=== PATIENT | male | born 1955 | race Caucasian/White ===

== ENCOUNTER 2019-02-07 21:07 | Emergency (ER) | payer OTHER, SELFPAY ==
[2019-02-07 21:15] VITALS: BP 154/94; PULSE 69; RESP 16; TEMP 36.5; O2SAT 96
--- NOTE | 2019-02-08 00:03 | ED.BACK ---
HPI - Back Pain/Injury General Chief Complaint: Back Pain/Injury Stated Complaint: thinks he has a kidney stone Time Seen by Provider: 02/08/19 00:02 Source: patient Mode of arrival: Ambulatory Limitations: no limitations History of Present Illness HPI Narrative: [age] year old male comes emergency department with right flank pain radiating to the right groin. Patient states that it started sort of gradually with increasing intensity he feels like it is very intense but dull pain. States it feels like somebody just rectum in the side with a baseball bat. He states that he has any fevers, no nausea or vomiting. He had a normal large bowel movement earlier today he does not have the sensation he needs to have more bowel movements. He has not had any dysuria urgency frequency or hematuria. No penile discharge. Denies pain into the testicles themselves. Patient has not had similar symptoms in the past. He states that some has some mild hypertension that is untreated, no other medical issues. No prior surgeries. Denies allergies. He smokes tobacco in a hookah form, denies alcohol or illicit. He lives on [facility]. He did receive a dose of Toradol around 730 this evening and states that was significantly helpful. Related Data Previous Rx's Medication Instructions Recorded hydrocodone-acetaminophen [[place]] 1 tab PO Q6H PRN #10 tab 02/08/19 tamsulosin [Flomax] 0.4 mg PO DAILY #7 cap 02/08/19 Allergies Allergy/AdvReac Type Severity Reaction Status Date / Time No Known Allergies Allergy Uncoded 06/12/17 12:29 Review of Systems Review of Systems ROS Unobtainable: All systems reviewed & are unremarkable except as noted in HPI and below Patient History Social History (Updated 02/08/19 @ 00:16 by Sangeeta Cabrera DO) Smoking Status: Current every day smoker Smokeless tobacco user: other substance use type: does not use Smoking Status: Former smoker Substance Use Type: marijuana Exam Narrative Exam Narrative: GENERAL: Alert and oriented x three, obese, well-appearing male in mild distress. HEENT: Head normocephalic, atraumatic, EOMI, pupils reactive, face symmetric, moist mucous membranes NECK: Supple, full range of motion CARDIOVASCULAR: Regular rate and rhythm without murmurs, rubs or gallops. RESPIRATORY: Breath sounds equal bilaterally, no wheezes rales or rhonchi. ABDOMEN: Soft, nontender. Normoactive bowel sounds all 4 quadrants. No guarding or rebound, rigidity, no mass : No CVA tenderness, no inguinal hernias. EXTREMITIES: Normal range of motion, no clubbing or edema. Neurovascularly intact NEUROLOGICAL: Cranial nerves II through XII grossly intact. Moving all extremities SKIN: Warm, dry, no petechiae, no rashes or lesions. Initial Vital Signs Initial Vital Signs: Vital Signs Temperature 97.7 F 02/07/19 21:15 Pulse Rate 69 02/07/19 21:15 Respiratory Rate 16 02/07/19 21:15 Blood Pressure 154/94 H 02/07/19 21:15 Pulse Oximetry 96 02/07/19 21:15 Course Orders Ordered: ED Orders 02/08/19 00:12 CT kidney ureter bladder (KUB) Stat 02/08/19 00:25 Complete Blood Count AUTO DIFF Stat Comprehensive Metabolic Panel Stat Lipase Stat Discontinued Medications Hydrocodone Bitart/Acetaminophen (Vicodin 5/325 Prepack) 1 bottle MISC SEEINSTR ONE Stop: 02/08/19 01:25 Last Admin: 02/08/19 01:31 Dose: 1 bottle Documented by: MARIA TERESA Ketorolac Tromethamine (Toradol) 30 mg IM NOW ONE Stop: 02/08/19 01:24 Last Admin: 02/08/19 01:36 Dose: Not Given Documented by: MARIA TERESA Ketorolac Tromethamine (Toradol) 30 mg IV NOW ONE Stop: 02/08/19 01:24 Last Admin: 02/08/19 01:31 Dose: 30 mg Documented by: MARIA TERESA Tamsulosin HCl (Flomax) 0.4 mg PO NOW ONE Stop: 02/08/19 01:16 Last Admin: 02/08/19 01:31 Dose: 0.4 mg Documented by: MARIA TERESA Vital Signs Vital signs: Vital Signs - 8 hr 02/08/19 02:10 Temperature 99.3 F Pulse Rate 51 L Respiratory Rate 16 Blood Pressure 159/84 H Pulse Oximetry 97 MDM - Back Pain/Injury Lab Data Attestation: I reviewed the patient's lab results. Result diagrams: 02/08/19 00:25 02/08/19 00:25 Labs: Lab Results 02/08/19 02/08/19 Range/Units 00:25 00:25 WBC 11.1 H (4.5-11.0) X10^3/uL RBC 4.43 L (4.5-5.9) X10^6/uL Hgb 13.6 (13.5-17.5) g/dL Hct 39.6 L (41-53) % MCV 89.6 (80-100) fL MCH 30.7 (26-34) PG MCHC 34.3 (30-36) % RDW 12.9 (11.6-14.8) % Plt Count 260 (150-400) X10^3/uL Neut % (Auto) 76.1 H (50-75) % Lymph % (Auto) 15.4 L (25-40) % [place] % (Auto) 7.5 (3-14) % Eos % (Auto) 0.4 L (2-4) % Baso % (Auto) 0.6 (0-2) % Neut # (Auto) 8400 H (2755-3030) /uL Lymph # (Auto) 1700 (1524-4110) /uL [place] # (Auto) 800 (0-900) /uL Eos # (Auto) 0 (0-450) /uL Baso # (Auto) 100 (0-100) /uL Sodium 138 (137-145) mmol/L Potassium 3.8 (3.4-5.1) mmol/L Chloride 102 (98-107) mmol/L Carbon Dioxide 23 (22-32) mmol/L BUN 22 H (9-20) mg/dL Creatinine 1.00 (0.66-1.25) mg/dL Estimated GFR > 60.0 (>60) mL/min BUN/Creatinine Ratio 22.0 (6-22) Glucose 109 (80-110) mg/dL Calcium 8.4 (8.4-10.2) mg/dL Total Bilirubin 0.4 (0.2-1.3) mg/dL AST 25 (17-59) IU/L ALT 14 (<50) IU/L Alkaline Phosphatase 73 (38-126) U/L Total Protein 7.4 (6.3-8.2) g/dL Albumin 4.5 (3.5-5.0) g/dL Globulin 2.9 (1.7-4.1) g/dL Albumin/Globulin Ratio 1.6 (1.0-2.8) Lipase 37 (23-300) U/L Urine Dip Bedside Urine Glucose Negative Bedside Urine Bilirubin - Negative Bedside Urine Ketone - Negative Urine Specific [place] 1.015 Bedside Urine Occult Blood - Negative Bedside Urine pH 6.0 Bedside Urine Protein +/- 15 Bedside Urine Urobilinogen +/- 1mg Bedside Urine Nitrite - Negative Bedside Urine Leukocytes - Negative Esterase Imaging Data CT scan - abdomen: Radiologist's impression: Right hydroureteronephrosis arising from 2.5 mm ureterovesical junction stone. Nonobstructing renal pelvic nephrolithiasis on the left. Marked colonic stool loading which may clinically manifest as constipation. Dependent sudden had mental atelectasis MDM Narrative Medical decision making narrative: Spoke with patient, he is was initially feeling much better his right at the 6 hour jossue and likely his Toradol is wearing off any began have quite a bit discomfort. He is due in terms of timing for another dose of Toradol and was given in the ED. Was also given a prepack of [place] and a dose of Flomax. Discussed with patient he has a small kidney stone will likely pass but potentially cannot and may need urology follow-up. Was given [address] Nieto as well as the [facility] group as patient lives on [facility] so these are the easiest for him to contact. Patient's renal function appears stable no signs of infection. Patient was much more comfortable after pain medication and comfortable with the plan. Was given a short course of Flomax as well as narcotic pain medication for as needed pain. Discharge Plan Departure Patient Disposition: Home Clinical Impression: Kidney stone on right side Discharge Date/Time: 02/08/19 02:10 Instructions: DI for Kidney Stones Activity Restrictions/Additional Instructions: Follow-up with Urology if your symptoms have not completely resolved call Saturday morning for an appointment. If your symptoms have totally resolved you can follow up with primary care instead. Take Flomax once daily until gone Take pain medication as prescribed, this medication can make you sleepy do not drive, perform hazardous activities or make any major decisions while taking it. I would recommend ibuprofen 800 mg every 8 hours as needed for pain and then taking narcotic pain medication for breakthrough pain. Return to the ER for fevers greater than 100.4 F, rapidly worsening pain, persistent vomiting, lightheadedness, passing out, inability urinate, black or bloody stools or other new or concerning symptoms. Prescriptions: New tamsulosin [Flomax] 0.4 mg capsule 0.4 mg PO DAILY Qty: 7 RF: 0 hydrocodone-acetaminophen [[place]] 5-325 mg tablet 1 tab PO Q6H PRN (Reason: pain) Qty: 10 RF: 0 Referrals: Jimenez Rosales DO [Non-Staff] - Sri Nieto MD [Physician] - Roger Ríos MD [Primary Care Provider] -
--- NOTE | 2019-02-08 00:12 | DI.CT.S_ITS ---
PROCEDURE: CT KIDNEY URETER BLADDER (KUB) INDICATIONS: right flank pain radiates to groin, likely stone TECHNIQUE: Noncontrast 5 mm thick sections acquired from the diaphragms to the symphysis. 5 mm thick coronal and sagittal reformats were then performed. For radiation dose reduction, the following was used: automated exposure control, adjustment of mA and/or kV according to patient size. COMPARISON: None. FINDINGS: Image quality: Excellent. Lung bases: Lung bases are clear. Heart size is normal. Urinary system: Both kidneys are normal in size. 3 mm stone is noted in the right UVJ causing mild right-sided hydronephrosis. There is mild right perinephric stranding. 3 mm stone noted in the lower pole the left kidney which does not cause obstruction. Bladder wall thickness is normal; no calcified bladder stones. Other solid organs: Liver is normal in size. Gallbladder is within normal limits. Pancreas is normal in contours. Spleen is normal in size. No adrenal nodules. Peritoneum and bowel: Unenhanced bowel loops demonstrate normal wall thickness and caliber. No free fluid or air. The appendix is not definitely visualized. No free fluid or inflammatory changes noted adjacent to the cecum. Nodes and vessels: No retroperitoneal or mesenteric adenopathy by size criteria. Aorta and inferior vena cava are normal in caliber. Abdominal wall: No ventral hernias. Pelvis: No free pelvic fluid. No inguinal adenopathy. Small bilateral fat containing inguinal hernias. Bones: No suspicious bony lesions. No vertebral body compression fractures. Spine degenerative disc disease and facet arthropathy. IMPRESSION: 1. 3 mm right UVJ stone causing mild right-sided hydronephrosis. 2. Mild right perinephric stranding which could be related to hydronephrosis, however superimposed infection cannot be excluded by imaging alone. Recommend correlation with urinalysis. 3. 3 mm nonobstructing left renal stone. Dictated by: Amy Javier MD, PhD on 02/08/2019 at 7:44 Approved by: Amy Javier MD, PhD on 02/08/2019 at 7:48
[2019-02-08 00:48] LABS: Add Manual Diff / Slide Review NO; Basophils Absolute Auto 100 /uL (0-100); Basophils Percent Auto 0.6 % (0-2); Eosinophils Absolute Auto 0 /uL (0-450); Eosinophils Percent Auto 0.4 % (2-4); Hematocrit 39.6 % (41-53); Hemoglobin 13.6 g/dL (13.5-17.5); Lymphocytes Absolute Auto 1700 /uL (1100-4500); Lymphocytes Percent Auto 15.4 % (25-40); Mean Corpuscular HGB Conc 34.3 % (30-36); Mean Corpuscular Hemoglobin 30.7 PG (26-34); Mean Corpuscular Volume 89.6 fL (80-100); Monocytes Absolute Auto 800 /uL (0-900); Monocytes Percent Auto 7.5 % (3-14); Neutrophils Absolute Auto 8400 /uL (1500-7000); Neutrophils Percent Auto 76.1 % (50-75); Platelet Count 260 X10^3/uL (150-400); Red Blood Cell Count 4.43 X10^6/uL (4.5-5.9); Red Cell Distribution Width 12.9 % (11.6-14.8); White Blood Cell Count 11.1 X10^3/uL (4.5-11.0)
[2019-02-08 01:02] LABS: Alanine Aminotransferase 14 IU/L (<50); Albumin 4.5 g/dL (3.5-5.0); Albumin Globulin Ratio 1.6 (1.0-2.8); Alkaline Phosphatase 73 U/L (38-126); Aspartate Aminotransferase 25 IU/L (17-59); Bilirubin Total 0.4 mg/dL (0.2-1.3); Blood Urea Nitrogen 22 mg/dL (9-20); Calcium 8.4 mg/dL (8.4-10.2); Carbon Dioxide 23 mmol/L (22-32); Chloride 102 mmol/L (98-107); Estimated Glomerular Filt Rate > 60.0 mL/min (>60); Globulin 2.9 g/dL (1.7-4.1); Glucose 109 mg/dL (80-110); HEMOLYSIS 20 (0-50); Lipase 37 U/L (23-300); Potassium 3.8 mmol/L (3.4-5.1); Sodium 138 mmol/L (137-145); Total Protein 7.4 g/dL (6.3-8.2)
[2019-02-08] MEDS: KETOROLAC 60 MG/2 ML VIAL 30 MG IV (01:31)
[2019-02-08] MEDS: TAMSULOSIN 0.4 MG CAPSULE PO (01:31)
[2019-02-08] MEDS: HYDROCODONE/ACET 5/325 PREPACK 1 BOTTLE MISC (01:31)
[2019-02-08 02:10] VITALS: BP 159/84; PULSE 51; RESP 16; TEMP 37.4; O2SAT 97
== END 2019-02-08 02:10 | disposition home or self-care (01) ==
PROVIDERS: Emergency Provider Emergency Medicine; PCP Family Medicine
DX: N20.0 Calculus of kidney (principal); I10 Essential (primary) hypertension
CPT/HCPCS: 36415; 74176; 80053; 81003; 83690; 85025; 96374; 99282; 99284; J1885

== ENCOUNTER 2019-10-19 15:01 | Observation (INO) | payer BC, SELFPAY ==
[2019-10-19] VITALS (22 sets, daily range): BP systolic 114–175; BP diastolic 71–97; PULSE 54–91; RESP 14–34; TEMP 36.7–37.3; O2SAT 95–100; BMI 34.4; BMI 35.4
--- NOTE | 2019-10-19 15:39 | DI.CT.S_ITS ---
PROCEDURE: CT HEAD/BRAIN WO CON INDICATIONS: Dizzy, nausea TECHNIQUE: Noncontrast 4.5 mm thick angled axial sections acquired from the foramen magnum to the vertex, with coronal and sagittal reformats. For radiation dose reduction, the following was used: automated exposure control, adjustment of mA and/or kV according to patient size. COMPARISON: None. FINDINGS: Image quality: Excellent. CSF spaces: Basal cisterns are patent. No extra-axial fluid collections. Ventricles are normal in size and shape. Brain: No midline shift. No intracranial masses or hemorrhage. Nelson-white matter interface is normal. Skull and face: Calvarium and visualized facial bones are intact, without suspicious lesions. Right parotid gland partially visualized. Sinuses: Visualized sinuses and mastoids are clear. IMPRESSION: No acute intracranial abnormality. Dictated by: Venu Mckeon M.D. on 10/19/2019 at 15:58 Approved by: Venu Mckeon M.D. on 10/19/2019 at 16:00
[2019-10-19] MEDS: SODIUM CHLORIDE 0.9% 1,000 ML 1000 ML IV ×2 (15:41→17:24)
[2019-10-19 15:44] LABS: Add Manual Diff / Slide Review NO; Basophils Absolute Auto 0 /uL (0-100); Basophils Percent Auto 0.5 % (0-2); Eosinophils Absolute Auto 100 /uL (0-450); Eosinophils Percent Auto 1.2 % (2-4); Hematocrit 44.4 % (41-53); Hemoglobin 15.5 g/dL (13.5-17.5); Lymphocytes Absolute Auto 2400 /uL (1100-4500); Lymphocytes Percent Auto 25.6 % (25-40); Mean Corpuscular Hemoglobin 31.6 PG (26-34); Mean Corpuscular Volume 90.3 fL (80-100); Monocytes Absolute Auto 1000 /uL (0-900); Monocytes Percent Auto 11.2 % (3-14); Neutrophils Absolute Auto 5700 /uL (1500-7000); Neutrophils Percent Auto 61.5 % (50-75); Platelet Count 328 X10^3/uL (150-400); Red Blood Cell Count 4.91 X10^6/uL (4.5-5.9); Red Cell Distribution Width 12.9 % (11.6-14.8); White Blood Cell Count 9.3 X10^3/uL (4.5-11.0)
[2019-10-19 15:51] LABS: Alanine Aminotransferase 17 IU/L (<50); Albumin 4.6 g/dL (3.5-5.0); Albumin Globulin Ratio 1.3 (1.0-2.8); Alkaline Phosphatase 58 U/L (38-126); Aspartate Aminotransferase 26 IU/L (17-59); BUN Creatinine Ratio 28.2 (6-22); Bilirubin Total 0.5 mg/dL (0.2-1.3); Blood Urea Nitrogen 24 mg/dL (9-20); Calcium 9.5 mg/dL (8.4-10.2); Carbon Dioxide 25 mmol/L (22-32); Chloride 104 mmol/L (98-107); Creatine Kinase 61 U/L (55-170); Estimated Glomerular Filt Rate > 60.0 mL/min (>60); Globulin 3.5 g/dL (1.7-4.1); Glucose 107 mg/dL (80-110); HEMOLYSIS 25 (0-50); Potassium 3.3 mmol/L (3.4-5.1); Sodium 138 mmol/L (137-145); Total Protein 8.1 g/dL (6.3-8.2)
[2019-10-19] MEDS: MECLIZINE HCL 12.5 MG TABLET 25 MG PO (16:00)
[2019-10-19] MEDS: ONDANSETRON 4 MG/2 ML INJ IV (16:00)
[2019-10-19 16:02] LABS: Troponin I < 0.012 ng/mL (0.01-0.034)
--- NOTE | 2019-10-19 16:22 | ED.NEUROSD ---
HPI - Neuro Symptoms/Deficit General Chief Complaint: Neuro Symptoms/Deficit Stated Complaint: possible stroke Time Seen by Provider: 10/19/19 15:08 Source: patient Mode of arrival: Wheelchair Limitations: other History of Present Illness HPI Narrative: Patient is a 64-year-old male who presents with dizziness double vision ongoing for the last 3 days. He says it started 3 days ago every time he sat up removed he got extremely dizzy and nauseous and had double vision. He needed to lay flat he was vomiting a lot as well at that time. He had no weakness numbness or tingling. He denies any chest pain or heart palpitations. He says he has some improvement however lying flat is the best position for him. On Anticoagulants: No Related Data Previous Rx's Medication Instructions Recorded hydrocodone-acetaminophen [[place]] 1 tab PO Q6H PRN #10 tab 02/08/19 tamsulosin [Flomax] 0.4 mg PO DAILY #7 cap 02/08/19 Allergies Allergy/AdvReac Type Severity Reaction Status Date / Time No Known Drug Allergies Allergy Verified 10/19/19 19:30 Review of Systems Review of Systems Narrative: GENERAL: Denies chills, fatigue, malaise, fever, sweats, travel HEENT: Denies sinus pain, ear pain, sore throat, difficulty swallowing, neck pain RESPIRATORY: Denies dyspnea, cough, wheezing, hemoptysis, sputum. CARDIOVASCULAR: Denies chest pain, palpitations, orthopnea, edema GASTROINTESTINAL: Denies nausea, vomiting, abdominal pain, diarrhea, constipation, melena. : Denies dysuria, frequency, incontinence, hematuria, urinary retention, flank pain. MUSCULOSKELETAL: Denies weakness, joint pain, or bony pain SKIN: No rash, no erythema, no pruritus NEUROLOGIC: See HPI PSYCHIATRIC: No concerning psychosocial issues. 12 point review of systems is negative except for those stated above and HPI Patient History Medical History Hypertension (Acute) Social History Smoking Status: Current every day smoker Smokeless tobacco user: other substance use type: does not use Smoking Status: Current every day smoker Substance Use Type: marijuana Exam Initial Vital Signs Initial Vital Signs: Vital Signs Temperature 98.3 F 10/19/19 15:09 Pulse Rate 61 10/19/19 15:09 Respiratory Rate 18 10/19/19 15:09 Blood Pressure 157/87 H 10/19/19 15:09 Pulse Oximetry 100 10/19/19 15:09 GENERAL: Alert well-appearing male slightly overweight and in no acute distress. HEENT: Head atraumatic,EOMI, pupils reactive, face symmetric, moist mucous membranes CARDIOVASCULAR: Regular rate and rhythm without murmurs, rubs or gallops. RESPIRATORY: Breath sounds equal bilaterally, no wheezes rales or rhonchi. ABDOMEN: Soft, nontender. Normoactive bowel sounds all 4 quadrants. No guarding or rebound. EXTREMITIES: Normal range of motion, no clubbing or edema. Neurovascularly intact NEUROLOGICAL: Alert and oriented x4.Normal gait and speech. Cranial nerves II through XII grossly intact. Good rmrfna-[id number], good [id number], strength equal bilaterally, no dysarthria or aphasia, sensation in tact to soft touch bilaterally, no visual changes, no facial droop SKIN: Warm, dry, no laceration, no petechiae, no rashes or lesions. Scores NIH Stroke Scale Level of Conciousness: Alert, keenly responsive Ask month/age: Answers both questions correctly. Open/close eyes, close hand: Performs both tasks correctly Best gaze horizontal: Normal Visual hubbard: No visual loss Facial palsy: Normal symetrical movement Left arm drift: No drift for full 10 sec Right arm drift: No drift for full 10 sec Left leg drift: No drift for full 10 sec Right leg drift: No drift for full 10 sec Limb ataxia: Absent Sensory on face/arms/legs: Normal, no sensory loss Best language: No aphasia, normal Dysarthria: Normal Extinction or inattention: No abnormality Total NIH Stroke scale score: 0 Course Orders Ordered: ED Orders 10/19/19 15:13 Complete Blood Count AUTO DIFF Stat Comprehensive Metabolic Panel Stat Troponin & CK Cardiac Panel Stat 10/19/19 15:39 CT head/brain wo con Stat Sodium Chloride (Normal Saline 0.9%) 1,000 mls @ 1,000 mls/hr IV CONT NIXON Last Infusion: 10/19/19 17:24 Dose: 0 mls/hr Documented by: Admin: 10/19/19 15:41 Dose: 1,000 mls/hr Documented by: LEYLA Discontinued Medications Diazepam (Valium) 2 mg IV NOW ONE Stop: 10/19/19 17:22 Last Admin: 10/19/19 17:33 Dose: 2 mg Documented by: LEYLA Sodium Chloride (Normal Saline 0.9%) 1,000 mls @ 1,000 mls/hr IV BOLUS ONE Stop: 10/19/19 18:20 Last Infusion: 10/19/19 19:01 Dose: 0 mls/hr Documented by: Admin: 10/19/19 17:24 Dose: 1,000 mls/hr Documented by: LEYLA Meclizine HCl (Antivert) 25 mg PO NOW ONE Stop: 10/19/19 15:40 Last Admin: 10/19/19 16:00 Dose: 25 mg Documented by: LEYLA Ondansetron HCl (Zofran) 4 mg IV NOW ONE Stop: 10/19/19 15:40 Last Admin: 10/19/19 16:00 Dose: 4 mg Documented by: LEYLA Vital Signs Vital signs: Vital Signs - 8 hr 10/19/19 15:09 10/19/19 15:26 10/19/19 15:30 Temperature 98.3 F Pulse Rate 61 64 65 Respiratory Rate 18 17 22 Blood Pressure 157/87 H Pulse Oximetry 100 98 97 10/19/19 15:31 10/19/19 15:58 10/19/19 16:00 Temperature Pulse Rate 65 60 57 L Respiratory Rate 24 14 19 Blood Pressure 166/97 H 156/80 H Pulse Oximetry 97 97 99 10/19/19 16:01 10/19/19 16:30 10/19/19 16:31 Temperature Pulse Rate 58 L 59 L 61 Respiratory Rate 22 16 15 Blood Pressure 144/84 H 114/72 Pulse Oximetry 99 95 97 10/19/19 17:00 10/19/19 17:17 10/19/19 17:18 Temperature Pulse Rate 60 69 81 Respiratory Rate 18 Blood Pressure 127/75 156/87 H 159/92 H Pulse Oximetry 96 99 99 10/19/19 17:30 10/19/19 17:31 10/19/19 18:00 Temperature Pulse Rate 56 L 54 L 64 Respiratory Rate 16 17 15 Blood Pressure 136/71 129/76 Pulse Oximetry 99 99 97 10/19/19 18:30 10/19/19 19:00 10/19/19 19:01 Temperature Pulse Rate 91 H 70 72 Respiratory Rate 27 H 20 20 Blood Pressure 122/84 175/90 H Pulse Oximetry 97 96 MDM - Neuro Symptoms/Deficit Lab Data Attestation: I reviewed the patient's lab results. Result diagrams: 10/19/19 15:13 10/19/19 15:13 Labs: Lab Results 10/19/19 10/19/19 Range/Units 15:13 15:13 WBC 9.3 (4.5-11.0) X10^3/uL RBC 4.91 (4.5-5.9) X10^6/uL Hgb 15.5 (13.5-17.5) g/dL Hct 44.4 (41-53) % MCV 90.3 (80-100) fL MCH 31.6 (26-34) PG MCHC 35.0 (30-36) % RDW 12.9 (11.6-14.8) % Plt Count 328 (150-400) X10^3/uL Neut % (Auto) 61.5 (50-75) % Lymph % (Auto) 25.6 (25-40) % [place] % (Auto) 11.2 (3-14) % Eos % (Auto) 1.2 L (2-4) % Baso % (Auto) 0.5 (0-2) % Neut # (Auto) 5700 (2597-8391) /uL Lymph # (Auto) 2400 (7622-9550) /uL [place] # (Auto) 1000 H (0-900) /uL Eos # (Auto) 100 (0-450) /uL Baso # (Auto) 0 (0-100) /uL Sodium 138 (137-145) mmol/L Potassium 3.3 L (3.4-5.1) mmol/L Chloride 104 (98-107) mmol/L Carbon Dioxide 25 (22-32) mmol/L BUN 24 H (9-20) mg/dL Creatinine 0.85 (0.66-1.25) mg/dL Estimated GFR > 60.0 (>60) mL/min BUN/Creatinine Ratio 28.2 H (6-22) Glucose 107 (80-110) mg/dL Calcium 9.5 (8.4-10.2) mg/dL Total Bilirubin 0.5 (0.2-1.3) mg/dL AST 26 (17-59) IU/L ALT 17 (<50) IU/L Alkaline Phosphatase 58 (38-126) U/L Total Creatine Kinase 61 (55-170) U/L CK-MB (CK-2) TNP CK-MB (CK-2) Rel Index TNP Troponin I < 0.012 (0.01-0.034) ng/mL Total Protein 8.1 (6.3-8.2) g/dL Albumin 4.6 (3.5-5.0) g/dL Globulin 3.5 (1.7-4.1) g/dL Albumin/Globulin Ratio 1.3 (1.0-2.8) Point of Care Testing Glucose POC 96 Urine Dip Bedside Urine Glucose Negative Bedside Urine Bilirubin - Negative Bedside Urine Ketone - Negative Urine Specific [place] 1.010 Bedside Urine Occult Blood - Negative Bedside Urine pH 7.5 Bedside Urine Protein - Negative Bedside Urine Urobilinogen - Negative Bedside Urine Nitrite - Negative Bedside Urine Leukocytes - Negative Esterase Imaging Data CT scan - head: Radiologist's Impression: PROCEDURE: CT HEAD/BRAIN WO CON INDICATIONS: Dizzy, nausea TECHNIQUE: Noncontrast 4.5 mm thick angled axial sections acquired from the foramen magnum to the vertex, with coronal and sagittal reformats. For radiation dose reduction, the following was used: automated exposure control, adjustment of mA and/or kV according to patient size. COMPARISON: None. FINDINGS: Image quality: Excellent. CSF spaces: Basal cisterns are patent. No extra-axial fluid collections. Ventricles are normal in size and shape. Brain: No midline shift. No intracranial masses or hemorrhage. Nelson-white matter interface is normal. Skull and face: Calvarium and visualized facial bones are intact, without suspicious lesions. Right parotid gland partially visualized. Sinuses: Visualized sinuses and mastoids are clear. IMPRESSION: No acute intracranial abnormality. Dictated by: Venu Mckeon M.D. on 10/19/2019 at 15:58 Approved by: Venu Mckeon M.D. on 10/19/2019 at 16:00 ECG Data Attestation: I personally reviewed and interpreted this ECG as follows: Prior ECG tracings: available for review Interpretation: EKG 1. Normal sinus rhythm rate [address] changes p.r. interval 149 QRS 115 QTC 419 no priors to compare EKG 2. Sinus rhythm rate [address] changes MDM Narrative Medical decision making narrative: After meclizine Zofran and fluids patient had ambulation trial he was still extremely on state steady and became symptomatic as soon as he sat up. He is then given another L of fluids and Valium I it to send him myself he seems to be asymptomatic while remaining still however with any movement he becomes symptomatic he is extremely unsteady on his feet. Unable to get MRI this evening I spoke with JAYDON marrero who agrees with observation. Discharge Plan Departure Patient Disposition: Admitted as Observation Clinical Impression: Vertigo Referrals: Roger Ríos MD [Primary Care Provider] -
[2019-10-19] MEDS: diazePAM 10 MG/2 ML SYRINGE 2 MG IV (17:33)
[2019-10-19 20:27] LABS: COVID19 -Nasal RAPID Negative (Negative)
--- NOTE | 2019-10-19 20:33 | DI.MRI.S_ITS ---
PROCEDURE: MR STROKE Pre- and post-contrast brain MRI, non-contrast brain MR angiogram, pre- and postcontrast neck MR angiogram INDICATIONS: Severe vertigo rule out cerebellar CVA TECHNIQUE: Brain: Noncontrast axial T1 spin echo, axial T2 fast spin echo, sagittal and axial FLAIR, coronal T2 fast spin echo, axial gradient echo, axial diffusion and ADC through the brain. After the administration of contrast, axial 3D VIBE of the cranial vasculature and brain. Brain MRA: Non-contrast 3-D time of flight MR angiogram, with multiple xwkunxj-dwlzyaidn-buiqbcxkwx (MIP) reformats performed. Neck MRA: Axial and sagittal TruFISP through the neck. Coronal dynamic MR angiogram during administration of contrast in the arterial and venous phases, with 3-dimenstional lxtrcnx-tiqqjpayz-mrbfuaotsm (MIP) reformats constructed from subtraction images. COMPARISON: None. FINDINGS: Image quality: Excellent. BRAIN: CSF spaces: Ventricles are normal in size and shape. Basal cisterns are patent. No extra-axial fluid collections. Brain: No intracranial bleeds or mass effects. Nelson-white matter interface is normal. Scattered scattered T2/ FLAIR signal hyperintense foci are present within the periventricular white matter suggesting microvascular ischemic changes. Diffusion weighted images show no acute ischemic insults. Brainstem appears normal. Normal intravascular flow voids are present. No abnormal intracranial enhancement. Skull and face: Calvarial marrow signal is normal. Orbits appear normal. Sinuses: Sinuses and mastoids are clear. BRAIN MR ANGIOGRAM: Anterior circulation: Intracranial internal carotid arteries are normal in size and enhancement. The flow within the paired anterior cerebral arteries is normal and symmetric. The flow within the middle cerebral arteries is normal and symmetric. The anterior communicating artery is seen. No stenoses, occlusions, or aneurysms. Posterior circulation: The visualized portions of the vertebral arteries demonstrate normal caliber, and join to form a normal appearing basilar artery. The flow within the posterior cerebral arteries is normal and symmetric. No stenoses, occlusions, or aneurysms. NECK MR ANGIOGRAM: Carotids: Great vessels demonstrate a conventional anatomy as they arise from the aortic arch. The origins of the common carotid arteries appear patent. The calibers and courses of both common carotid arteries are normal. The bifurcation regions appear normal bilaterally. The internal carotid arteries demonstrate normal course and caliber. Posterior circulation: The origins of the vertebral arteries appear patent. More superior portions of both vertebral arteries demonstrate normal course and caliber, and join to form a normal appearing basilar artery. Miscellaneous: Subclavian arteries appear patent. Pre-contrast images through the neck show no soft tissue abnormalities. IMPRESSION: BRAIN MRI: 1. No acute intracranial findings. Specifically, no increased restricted diffusion to suggest acute or subacute infarct. 2. Mild findings likely associated with chronic microvascular ischemic changes. BRAIN MR ANGIOGRAM: 1. No stenosis, occlusion, or aneurysm. NECK MR ANGIOGRAM: 1. No stenosis, occlusion, or aneurysm. Dictated by: Seda Thomas M.D. on 10/20/2019 at 17:33 Approved by: Seda Thomas M.D. on 10/20/2019 at 17:38
[2019-10-19] MEDS: SODIUM CHLORIDE 0.9% 1,000 ML 100 ML IV ×2 (21:15→21:53)
[2019-10-19] MEDS: POTASSIUM CHLORIDE 40 MEQ in SODIUM CHLORIDE 0.9% 500 ML 130 ML IV (21:16)
[2019-10-19] MEDS: ATORVASTATIN 20 MG TABLET PO (21:53)
[2019-10-19 21:54] LABS: INR 1.1 (0.9-1.3); Prothrombin Time 12.4 SECONDS (10.1-12.7)
[2019-10-19 21:56] LABS: PTT Partial Thromboplastin Tim 33 SECONDS (26.4-36.2)
--- NOTE | 2019-10-19 22:06 | PC.NURSE ---
Pt arrived from ED to RM 218 alert/oriented. States he has been having episodes of vertigo & nausea for two days. Pt states no emesis. Covid results neg. IVF of NS @ 100cc/hr & KCL 40meq infusing into the LFA via pump w/o incidence. Tele in place. NSR per ICU staff. Call light w/in reach, bed alarm on for pt safety. COntinue w/plan of care.
[2019-10-19 22:51] LABS: Thyroid Stimulating Hormone 3.11 uIU/mL (0.47-4.68)
--- NOTE | 2019-10-19 23:03 | PM.HP.1 ---
History of Present Illness History of Present Illness Date Patient Seen: 10/19/19 Time Patient Seen: 22:15 Chief complaint: possible stroke Narrative: Mr. Booker Jacobs is a 64-year-old male with history of hypertension and hep C who presents to the ER with dizziness and double vision. Patient states his symptoms began Saturday night 3 days ago when he woke with diaphoresis, nausea and impaired vision. The patient reports he has been unable set up without the room severely spending the cannot recall which way he states that he could not walk and adds that he was in fear of falling to either side. He describes significant diplopia which is since improved though he reports still visual blurring. His nausea has improved initially keep nothing down Saturday on Saturday he could begin eating little bit and reports eating a burrito today without gastric upset. He still reports now he feels disequilibrium like on a moving boat with his symptoms exacerbating with movement or trying to set up. Reports no recent illness, fevers or chills or COVID-19 exposures. Denies complaints of headaches or changes in hearing or problem swallowing. He does at that about a week ago he had his right ear checked by his PCP and was told that he had ear wax impacted. He denies complaints of chest pain or palpitations and has no shortness of breath cough or wheezing. He has no abdominal pain or bloating and with movement his disease continues to make him feel nauseous. Reports no changes in bowel or bladder habits. Upon arrival the patient has a temperature 98.3?, heart rate of 61, blood pressure 151/87, respirations of 18 saturating 100% on room air. CT of the head is obtained which finds no bleed, lesions or other acute intracranial pathology. On laboratory analysis he has white count 9.3, hemoglobin of 15.5, hematocrit 44.9 and platelets of 328. He has a sodium 138 and a potassium 3.3. His BUN is 24 his creatinine is 0.85. His nonfasting glucose of 107. A total CK is 61 and troponin is negative at 0.012. Twelve lead EKG is obtained which shows a sinus rhythm with ventricular rate of 66 and a intraventricular conduction delay with a QRS duration of 112 milliseconds, no ectopy, ST or T-wave changes. In the ER the patient received 5 mg of diazepam, meclizine 25 mg Zofran 4 mg and 1 L of normal saline. The patient is admitted to medicine service for severe vertigo. Patient History Medical History Hypertension (Acute) Surgical History History of colonoscopy (Acute) History of tonsillectomy (Acute) Family & Social History Family History (Updated 10/19/19 @ 23:26 by JAYDON Galvan) Father Cancer Mother Cancer Lupus Vertigo Social History: household members none Prior Living Arrangements House Safety & Behavioral: Feels Safe in Current Yes Environment Been Physically Hurt or No Threatened By a Person Suicidal Ideation Description None Suicide Plan Description No Plan Tobacco & Substance use: Smoking Status Current every day smoker alcohol intake frequency holiday/special occasion Substance Use Type does not use Meds Home Medications and Allergies Home Medications Medication Instructions Recorded Confirmed Type chlorthalidone 25 mg PO DAILY 10/19/19 10/19/19 History Allergies Allergy/AdvReac Type Severity Reaction Status Date / Time No Known Drug Allergies Allergy Verified 10/19/19 19:30 Review of Systems Review of Systems ROS: Yes All systems reviewed with the patient and are negative except as otherwise documented Exam Vital Signs (past 8 hours): - 10/19/19 15:09 10/19/19 15:26 10/19/19 15:30 Temperature 98.3 F Pulse Rate 61 64 65 Respiratory Rate 18 17 22 Blood Pressure 157/87 H Pulse Oximetry 100 98 97 10/19/19 15:31 10/19/19 15:58 10/19/19 16:00 Temperature Pulse Rate 65 60 57 L Respiratory Rate 24 14 19 Blood Pressure 166/97 H 156/80 H Pulse Oximetry 97 97 99 10/19/19 16:01 10/19/19 16:30 10/19/19 16:31 Temperature Pulse Rate 58 L 59 L 61 Respiratory Rate 22 16 15 Blood Pressure 144/84 H 114/72 Pulse Oximetry 99 95 97 10/19/19 17:00 10/19/19 17:17 10/19/19 17:18 Temperature Pulse Rate 60 69 81 Respiratory Rate 18 Blood Pressure 127/75 156/87 H 159/92 H Pulse Oximetry 96 99 99 10/19/19 17:30 10/19/19 17:31 10/19/19 18:00 Temperature Pulse Rate 56 L 54 L 64 Respiratory Rate 16 17 15 Blood Pressure 136/71 129/76 Pulse Oximetry 99 99 97 10/19/19 18:30 10/19/19 19:00 10/19/19 19:01 Temperature Pulse Rate 91 H 70 72 Respiratory Rate 27 H 20 20 Blood Pressure 122/84 175/90 H Pulse Oximetry 97 96 10/19/19 19:30 10/19/19 20:15 10/19/19 21:33 Temperature 99.1 F Pulse Rate 66 58 L Respiratory Rate 34 H 16 18 Blood Pressure 158/82 H 157/94 H Pulse Oximetry 99 98 Oxygen Delivery Method Room Air Oxygen Flow Rate 0 Narrative Exam Narrative: GENERAL APPEARANCE: well developed, obese male with BMI of 35.4, laying supine in bed in no acute distress. HEENT: Normocephalic, no facial droop her ptosis, PERRLA, conjunctiva clear, EOMs intact, bilateral nystagmus nystagmus, no sinus tenderness to percussion, no auricle, tragus or mastoid pain on palpation the no rhinorrhea, mucous membranes are moist and pink without lesions or exudate. NECK/THYROID: neck supple, nontender, no JVD, no carotid bruit, no thyromegaly, trachea midline. LYMPH NODES: no cervical or supraclavicular lymphadenopathy. SKIN: [place], warm and dry, no visible lesions, rashes, ulcerations or petechiae. HEART: regular rate and rhythm, S1-S2, no murmur, no rubs or gallops, brisk capillary refill, no edema LUNGS: clear to auscultation bilaterally, no coarseness crackles or wheezing, no cough present CHEST: Symmetrical movement, no accessory muscle use, good tidal volume. ABDOMEN: Soft, obese, tympanitic upper dull lower quadrants, no abdominal tenderness, no guarding or peritoneal signs, no organomegaly, no flank or suprapubic tenderness, active bowel tones. BACK: Nontender to palpation, no back pain with straight leg raise EXTREMITIES: moves all extremities, strength is 5/5 and symmetrical, no drift or ataxia, no deformities or joint effusions. NEUROLOGIC: AAO x4, cranial nerves II-XII grossly intact, NIH score 0, sensation intact to light touch, hearing grossly normal to speech. PSYCH: Good judgment, good insight, linear thought process, cooperative, appropriate with stable behavior Objective Labs Result Diagrams: 10/19/19 15:13 10/19/19 15:13 Labs: Laboratory Results - last 24 hr 10/19/19 10/19/19 10/19/19 15:13 15:13 15:13 WBC 9.3 RBC 4.91 Hgb 15.5 Hct 44.4 MCV 90.3 MCH 31.6 MCHC 35.0 RDW 12.9 Plt Count 328 Neut % (Auto) 61.5 Lymph % (Auto) 25.6 [place] % (Auto) 11.2 Eos % (Auto) 1.2 L Baso % (Auto) 0.5 Neut # (Auto) 5700 Lymph # (Auto) 2400 [place] # (Auto) 1000 H Eos # (Auto) 100 Baso # (Auto) 0 PT 12.4 INR 1.1 APTT 33 Sodium 138 Potassium 3.3 L Chloride 104 Carbon Dioxide 25 BUN 24 H Creatinine 0.85 Estimated GFR > 60.0 BUN/Creatinine Ratio 28.2 H Glucose 107 Calcium 9.5 Total Bilirubin 0.5 AST 26 ALT 17 Alkaline Phosphatase 58 Total Creatine Kinase 61 CK-MB (CK-2) TNP CK-MB (CK-2) Rel Index TNP Troponin I < 0.012 Total Protein 8.1 Albumin 4.6 Globulin 3.5 Albumin/Globulin Ratio 1.3 TSH COVID-19 PCR 10/19/19 10/19/19 15:13 19:07 WBC RBC Hgb Hct MCV MCH MCHC RDW Plt Count Neut % (Auto) Lymph % (Auto) [place] % (Auto) Eos % (Auto) Baso % (Auto) Neut # (Auto) Lymph # (Auto) [place] # (Auto) Eos # (Auto) Baso # (Auto) PT INR APTT Sodium Potassium Chloride Carbon Dioxide BUN Creatinine Estimated GFR BUN/Creatinine Ratio Glucose Calcium Total Bilirubin AST ALT Alkaline Phosphatase Total Creatine Kinase CK-MB (CK-2) CK-MB (CK-2) Rel Index Troponin I Total Protein Albumin Globulin Albumin/Globulin Ratio TSH 3.11 COVID-19 PCR Negative Assessment & Plan Assessment & Plan narrative: This is a 64-year-old male patient had an onset of severe vertigo initially associated with diaphoresis, visual distortion, weakness and nausea that has improved but dizziness and diplopia persists. 1. 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 Symptoms have improved but persisted. No prior history of similar problems. The patient has disequilibrium increased with movement, bilateral nystagmus, no headache or neck pain. -the patient is hypertensive on arrival to ER with a blood pressure 157/87 that is been labile 120s to 170s. -CT scan of the head finds no acute intracranial pathology, no bleeds or lesions. -patient takes chlorthalidone 25 mg daily but has not taken the medication since onset of symptoms. -ordered stat swallow screening which patient passed. -ordered MRI stroke protocol in the morning. -requested speech therapy, occupational therapy and physical therapy to consult evaluate and treat. -will obtain lipid panel as well as TSH and hemoglobin A1c for risk stratification. -ordered atorvastatin 20 mg daily -ordered aspirin 81 mg daily. 2. Hypertension, chronic, stable -blood pressure is 157/87 upon arrival to the ER. -patient takes chlorthalidone 25 mg daily but has not taken the medication since onset of symptoms. -patient appears dehydrated on labs with elevated BUN at 24 and a creatinine is 0.85 with a BUN creatinine ratio of 28.2 -will gently rehydrate the patient normal saline and hold chlorthalidone. 3. Hypokalemia, acute, present on admission, active -potassium is 3.3 on admission labs. Hypokalemia is likely related to chlorthalidone administration. -ordered potassium chloride 40 mg IV now. VTE prophylaxis, bilateral SCDs, heparin IV fluid: Normal saline 75 cc per Diet: Heart healthy Code status: Full code, patient designates his daughter Shira Jacobs to be his surrogate decision maker. The patient is admitted to the hospital due to the severity symptoms and potential for complications and adverse events as well as need for additional monitoring and evaluation. The patient is admitted as observation with expected length of stay to be less than 2 midnights. COVID-19 COVID-19 status: Negative Result date/Date tested (Pos, Neg/Pending): 10/19/19 Scores GCS [place] coma scale eye opening: Spontaneous Param coma scale verbal response: Orientated [place] coma scale motor response: Obey commands [place] coma scale total score: 15 NIHSS Level of Conciousness: Alert, keenly responsive Ask month/age: Answers both questions correctly. Open/close eyes, close hand: Performs both tasks correctly Best gaze horizontal: Normal Visual hubbard: No visual loss Facial palsy: Normal symetrical movement Left arm drift: No drift for full 10 sec Right arm drift: No drift for full 10 sec Left leg drift: No drift for full 5 sec Right leg drift: No drift for full 5 sec Limb ataxia: Absent Sensory on face/arms/legs: Normal, no sensory loss Best language: No aphasia, normal Dysarthria: Normal Extinction or inattention: No abnormality Total NIH Stroke scale score: 0 Quality VTE Deep Vein Thrombosis/Pulmonary Embolism Present on Admission: No
[2019-10-19 23:07] LABS: Hemoglobin A1C% w Est Avg Glu 5.3 % (4.0-6.0)
--- NOTE | 2019-10-20 00:07 | PC.NURSE ---
Patient is alert and oriented with NIH of 0. Denies current dizziness at rest or when repositioning in bed. Breath sounds CTA with RA sat of 94%. HRR; telemetry reading was SR w/BBB. Denies nausea. BT present and abdomen is soft. Voiding per urinal; denies dysuria, frequency or urgency. Is able to turn self in bed. Gait not assessed at this time as not yet out of bed. Bilateral calf SCD's applied as per MD order. Denies pain. Fall risk score is moderate and bed alarm is activated. Patient instructed not to get out of bed without assistance.
[2019-10-20 04:08] VITALS: BP 123/81; PULSE 60; RESP 18; TEMP 37.1; O2SAT 97
[2019-10-20 06:20] LABS: Add Manual Diff / Slide Review NO; Basophils Absolute Auto 100 /uL (0-100); Basophils Percent Auto 0.8 % (0-2); Eosinophils Absolute Auto 200 /uL (0-450); Eosinophils Percent Auto 2.7 % (2-4); Hematocrit 41.4 % (41-53); Hemoglobin 13.9 g/dL (13.5-17.5); Lymphocytes Absolute Auto 2100 /uL (1100-4500); Lymphocytes Percent Auto 32.5 % (25-40); Mean Corpuscular HGB Conc 33.7 % (30-36); Monocytes Absolute Auto 600 /uL (0-900); Monocytes Percent Auto 10.1 % (3-14); Neutrophils Absolute Auto 3400 /uL (1500-7000); Neutrophils Percent Auto 53.9 % (50-75); Platelet Count 264 X10^3/uL (150-400); Red Cell Distribution Width 12.6 % (11.6-14.8); White Blood Cell Count 6.4 X10^3/uL (4.5-11.0)
[2019-10-20 06:24] LABS: BUN Creatinine Ratio 22.5 (6-22); Blood Urea Nitrogen 18 mg/dL (9-20); Calcium 8.3 mg/dL (8.4-10.2); Carbon Dioxide 24 mmol/L (22-32); Chloride 109 mmol/L (98-107); Estimated Glomerular Filt Rate > 60.0 mL/min (>60); Glucose 103 mg/dL (80-110); HEMOLYSIS < 15 (0-50); Sodium 139 mmol/L (137-145)
[2019-10-20 07:58] VITALS: BP 134/88; PULSE 54; RESP 16; TEMP 36.3; O2SAT 97
--- NOTE | 2019-10-20 08:48 | PM.PN.1 ---
Subjective Subjective Date Patient Seen: 10/20/19 Interval history: Booker Jacobs is a 64-year-old male with a past medical history significant for hypertension, hep C, and nicotine dependencewho presented to the ED for persistent dizziness, disequilibrium and double vision. The patient is lying in bed comfortably. He continues to have dysequilibrium where the ground feels like it is tilting back and forth or he reports like surfing. He denies any recurrence of nausea or vomiting. He does have mild intermittent double vision with certain positions and reports its hard to focus at time but improving overall. He denies hearing impairment. He does report he recently had impacted cerumen in right ear with water getting in his ear last [place] the [place]. He is no longer having fever or chills. He denies headache, chest pain, shortness of breath, sore throat, rhinitis, abdominal pain, nausea, vomiting, fever, chills, dysuria, diarrhea or constipation. He is voiding without difficulty. He has not had a bowel movement since admission but feels is though he is going to soon. He is eating and drinking normally. He is up ambulating with assistance. Exam Vital Signs (past 8 hours): - 10/20/19 04:08 10/20/19 07:58 Temperature 98.8 F 97.3 F L Pulse Rate 60 54 L Respiratory Rate 18 16 Blood Pressure 123/81 134/88 Pulse Oximetry 97 97 Oxygen Delivery Method Room Air Oxygen Flow Rate 0 Narrative Exam Narrative: General: Older gentleman lying in bed and in no acute distress, well-developed, well-nourished, appropriately interactive HEENT: Normocephalic, atraumatic. External ears without defect. Pupils equal, round, and reactive to light. Anicteric sclerae, moist conjunctivae, and no lid lag. Oropharynx free of erythema and cobble stoning with moist mucosa. Horizontal nystagmus left > right. Right auditory canal with significant cerumen not impacted. Neck: Supple with full range of motion. No jugular venous distension. No lymphadenopathy or thyromegaly. Cardiovascular: Regular rate and rhythm without murmurs, rubs, or gallops appreciated Pulmonary: Clear to auscultation bilaterally without crackles, wheezes, or rhonchi. Normal respiratory effort with no use of accessory muscles. Abdomen: Soft, obese, bowel sounds present, nontender, nondistended. No hepatosplenomegaly or masses appreciated. Extremities: No clubbing, cyanosis, or edema. Skin: Normal temperature, turgor, and texture; no rash, ulcers, or subcutaneous nodules appreciated. Neurological: Cranial nerves grossly intact. Horizontal nystagmus left > right. No focal neurological deficits. Disequilibrium and ataxia. Psychiatric: Normal mood and affect. Alert and oriented to person, place, and time. Objective Labs Result Diagrams: 10/20/19 05:35 10/21/19 06:15 Labs: Laboratory Results - last 24 hr 10/19/19 10/19/19 10/19/19 15:13 15:13 15:13 WBC 9.3 RBC 4.91 Hgb 15.5 Hct 44.4 MCV 90.3 MCH 31.6 MCHC 35.0 RDW 12.9 Plt Count 328 Neut % (Auto) 61.5 Lymph % (Auto) 25.6 [place] % (Auto) 11.2 Eos % (Auto) 1.2 L Baso % (Auto) 0.5 Neut # (Auto) 5700 Lymph # (Auto) 2400 [place] # (Auto) 1000 H Eos # (Auto) 100 Baso # (Auto) 0 PT 12.4 INR 1.1 APTT 33 Sodium 138 Potassium 3.3 L Chloride 104 Carbon Dioxide 25 BUN 24 H Creatinine 0.85 Estimated GFR > 60.0 BUN/Creatinine Ratio 28.2 H Glucose 107 Hemoglobin A1c Calcium 9.5 Total Bilirubin 0.5 AST 26 ALT 17 Alkaline Phosphatase 58 Total Creatine Kinase 61 CK-MB (CK-2) TNP CK-MB (CK-2) Rel Index TNP Troponin I < 0.012 Total Protein 8.1 Albumin 4.6 Globulin 3.5 Albumin/Globulin Ratio 1.3 TSH COVID-19 PCR 10/19/19 10/19/19 10/19/19 15:13 15:13 19:07 WBC RBC Hgb Hct MCV MCH MCHC RDW Plt Count Neut % (Auto) Lymph % (Auto) [place] % (Auto) Eos % (Auto) Baso % (Auto) Neut # (Auto) Lymph # (Auto) [place] # (Auto) Eos # (Auto) Baso # (Auto) PT INR APTT Sodium Potassium Chloride Carbon Dioxide BUN Creatinine Estimated GFR BUN/Creatinine Ratio Glucose Hemoglobin A1c 5.3 Calcium Total Bilirubin AST ALT Alkaline Phosphatase Total Creatine Kinase CK-MB (CK-2) CK-MB (CK-2) Rel Index Troponin I Total Protein Albumin Globulin Albumin/Globulin Ratio TSH 3.11 COVID-19 PCR Negative 10/20/19 10/20/19 05:35 05:35 WBC 6.4 RBC 4.50 Hgb 13.9 Hct 41.4 MCV 92.0 MCH 31.0 MCHC 33.7 RDW 12.6 Plt Count 264 Neut % (Auto) 53.9 Lymph % (Auto) 32.5 [place] % (Auto) 10.1 Eos % (Auto) 2.7 Baso % (Auto) 0.8 Neut # (Auto) 3400 Lymph # (Auto) 2100 [place] # (Auto) 600 Eos # (Auto) 200 Baso # (Auto) 100 PT INR APTT Sodium 139 Potassium 4.0 Chloride 109 H Carbon Dioxide 24 BUN 18 Creatinine 0.80 Estimated GFR > 60.0 BUN/Creatinine Ratio 22.5 H Glucose 103 Hemoglobin A1c Calcium 8.3 L Total Bilirubin AST ALT Alkaline Phosphatase Total Creatine Kinase CK-MB (CK-2) CK-MB (CK-2) Rel Index Troponin I Total Protein Albumin Globulin Albumin/Globulin Ratio TSH COVID-19 PCR Assessment & Plan Assessment & Plan narrative: Booker Jacobs is a 64-year-old male with a past medical history significant for hypertension, hep C, and nicotine dependence who presented to the ED for persistent dizziness, disequilibrium and double vision. 1. Acute vestibular neuritis, present on admission. Improving. -Patient presented with severe dizziness and disequilibrium with associated diaphoresis, visual distortion, nausea and vomiting. Patient's dizziness and disequilibrium have improved overall but persisted. No prior history of similar problems. The patient has disequilibrium increased with movement, bilateral nystagmus, no headache or neck pain. -CT head without contrast did not demonstrate any acute intracranial abnormalities. MR stroke protocol unremarkable did not demonstrate stenosis, occlusion, or aneurysm. CVA ruled out. -Risk stratified with hemoglobin A1c which was normal at 5.3% and fasting lipid panel which demonstrated mild hyperlipidemia with LDL 108 (goal < 100) and recommend lifestyle modification including diet and exercise. Discontinued aspirin and statin for stroke prevention as not indicated. -Continued physical, occupational and speech therapy evaluation and treatment. Recommend outpatient referral to physical therapy for vestibular training. -discussed case with on-call ENT, Dr. Sinha, who recommended outpatient referral to ENT for right-sided cerumen extraction and evaluation and treatment of vestibular neuritis. 2. Hypertension, chronic, present on admission. Stable. -Held chlorthalidone due to dehydration from nausea and vomiting, as well as, to allow for permissive hypertension in the case of CVA which has been ruled out. -Continue to monitor blood pressure closely and treat if necessary. 3. Hypokalemia, acute, present on admission. Resolved. -Likely related to GI losses with nausea and vomiting. -Initial potassium level 3.3. Received potassium chloride 40 mEq IV x1. Potassium level now 4.0. Magnesium level normal at 2.2. -Continue to monitor potassium level closely and replete as necesary. 4. Nicotine dependence, chronic, present on admission. Stable. -Patient reports that he smokes tobacco hooka intermittently. -Counseled the patient and recommended indefinite smoking cessation. Code status: Full code, patient designates his daughter Shira Jacobs to be his surrogate decision maker. VTE prophylaxis: SQ Heparin, bilateral SCDs Disposition: Patient likely to discharge home tomorrow. Quality VTE Deep Vein Thrombosis/Pulmonary Embolism Present on Admission: No
--- NOTE | 2019-10-20 09:38 | ST.IPIE ---
Visit Care Team Role Provider Type Roger Ríos MD Primary Care Provider Physician Referring Provider Specialty: Family Practice Address: [address] [place] [address], [id number] Email: [email or web address] DO Emergency Provider Physician Specialty: Emergency Medicine Address: [address] [place] [address], [address] Email: [email or web address] [email or web address] Galvan Admit Provider Physician Attending Provider Specialty: Internal Medicine Address: [address] [place] [address], [id number] Email: [email or web address] Past Medical History (Last Reviewed 10/19/19 @ 23:24 by JAYDON Galvan) Hypertension (Acute Medical) ST IP Initial Evaluation Report PERIANESTHESIA NURSE Language Evaluation Start: 10/20/19 09:24 Freq: Status: Active Protocol: Document 10/20/19 09:25 LNK (Rec: 10/20/19 09:37 LNK [id number]) Language Evaluation Session Time Visit Start Time 08:45 Visit Stop Time 09:05 Total Visit Minutes [address] Chaudhary Reason for Referral CVA Past Medical History Patient History per H&P: Pt is a 64-year-old male with history of hypertension and hep C who presents to the ER with dizziness and double vision. Patient states his symptoms began Saturday night 3 days ago when he woke with diaphoresis, nausea and impaired vision. The patient reports he has been unable set up without the room severely spending the cannot recall which way he states that he could not walk and adds that he was in fear of falling to either side. He describes significant diplopia which is since improved though he reports still visual blurring. His nausea has improved initially keep nothing down Saturday on Saturday he could begin eating little bit and reports eating a burrito today without gastric upset. He still reports now he feels disequilibrium like on a moving boat with his symptoms exacerbating with movement or trying to set up. Additionally, pt reports that recently, he felt like he could not clear his right ear and that his right ear was tickling inside. Hearing Auditory History Informal observation in a quiet room indicated hearing WFL Oral Motor Examination Oral Motor Exam Completed Yes: Informal observation indicated structures and function WFL Subjective Subjective Pt was in bed, had just finished breakfast. His tray was empty and pt stated he had no difficulty with swallowing . He was observed to drinking H2O from a straw with >1 swallow. No overt s/sx observed. Speech was clear and articulate - Informal Assessment Receptive Language Normal Yes Expressive Language Normal Yes Articulation Normal Yes Cognition Normal Yes Assessment Findings Pt was able to describe to me the events that lead him to the hospital from from Saturday evening to this morning. He was able to provide details, No s/sx of aphasia, dysarthria , word-finding ability or confusion. Pt's speech and language skills appear to be WFL. Pt has diagnosis of possible cerebellar CVA. Symptomology also suggestive of labrynthitis. Spoke to Dr Chaudhary after assessment. Pt not appropriate for ST services at this time. - Receptive Language - Expressive Language -
[2019-10-20] MEDS: ENOXAPARIN 40 MG/0.4 ML SYRINGE SUBCUT (09:39)
[2019-10-20] MEDS: ASPIRIN EC 81 MG TABLET PO (09:39)
[2019-10-20 10:47] LABS: Cholesterol 178 mg/dL (140-199); HDL Cholesterol 40 mg/dL (40-60); LDL Cholesterol Calculated 108 mg/dL (<100); Triglycerides 150 mg/dL (35-150)
--- NOTE | 2019-10-20 11:15 | OT.IP.EVAL ---
Past Medical History (Last Reviewed 10/19/19 @ 23:24 by JAYDON Galvan) Hypertension (Acute) Surgical History (Last Reviewed 10/19/19 @ 23:25 by JAYDON Galvan) History of colonoscopy (Acute) History of tonsillectomy (Acute) Occupational Therapy Inpatient Evaluation/Re-Eval M1 PT/OT-IP Prior Functional Status Start: 10/20/19 12:03 Freq: NEEDED Status: Active Protocol: Document 10/20/19 12:03 [facility] (Rec: 10/20/19 12:27 [facility] [id number]) Medical Review Prior Functional Status Communication Independent. Mobility and Gait Independent with no devices for mobility. Activities of Daily Living and IADL's Independent for all needs, worked in the [employer] services on [facility]. Prior Functional Level (Other details) Pt [place] in two story house which is self sustainable with an outhouse and outdoor shower. Currently pt has a friend camping on his property for the month. Social History Household Members friend(s),none Living Arrangements House Number of Floors (Floors) Two Floors Number of Stairs To Enter/Railing? 4 steps with no rail to enter form the kitchen. 14 steps with no rails, landing and another 2 steps with no rails to his bed room level. Pt uses a jar at night for urination and usually has a bowel movemetn at work. Pt states just jumps into the pond on his property for showers. M2 OT-IP Current Condition Start: 10/20/19 12:03 Freq: Status: Active Protocol: Document 10/20/19 12:03 [facility] (Rec: 10/20/19 12:27 [facility] [id number]) Occupational Therapy Current Condition Current Condition Evaluation Date 10/20/19 Treatment Diagnosis possible CVA?, vertigo M3 OT- IP Subjective and Pain Start: 10/20/19 12:03 Freq: Status: Active Protocol: Document 10/20/19 12:03 [facility] (Rec: 10/20/19 12:27 [facility] [id number]) OT- Subjective Occupational Therapy Visit Type Type Initial Evaluation Visit Start Time 10:03 Visit Stop Time 11:15 Total Visit Minutes 72 OT Pain Assessment Pain When Pain Assessed At Rest Pain Present Pain Present Denied Pain M4 OT- IP ADL's Start: 10/20/19 12:03 Freq: Status: Active Protocol: Document 10/20/19 12:03 [facility] (Rec: 10/20/19 12:27 [facility] [id number]) OT [id number] Comments OT Self-Feeding Comments NOt at meal time. OT ADL-Grooming General Evaluation Areas Needing Assistance Retrieving/Set-up of Grooming Items Comments OT Grooming Comments After set-up pt able to do grooming needs while sitting on the edge of the bed. OT ADL-Oral Care General Eval Oral Care Ability Independent OT ADL-Dressing General Eval Lower Body Dressing Ability Standby Assistance Comments OT Dressing Comments Pt with increased time able to blade/doff socks. Pt has more difficulty to blade/doff left sock as needing more asisst to help cross his left leg over. OT ADL-Toileting Comments OT Toileting Comments Pt not having to go at this time. OT ADL-Bathing Bathing Type Bathing Type Sponge Bath General Evaluation Bathing Ability Minimal Assistance Areas Needing Assistance Wash/Dry Back Comments OT Bathing Comments Pt able to sponge off while seated at the end of bed, ENZO for his back. M5 OT- IP IADL's Start: 10/20/19 12:03 Freq: Status: Active Protocol: Document 10/20/19 12:03 [facility] (Rec: 10/20/19 12:27 [facility] [id number]) OT-Instrumental Activities of Daily Living Home Safety Awareness Awareness of Need for Assistance at Home Good Awareness Ability to Problem Solve Emergency Able to Problem Solve Situations Medication Management Medication Management No Deficits Identified Money Management Money Management No Deficits Identified Meal Preparation Meal Preparation Comments At this time due to vertigo, pt oli benefit form assist for IADL needs. M6 OT- IP Functional Cognition Start: 10/20/19 12:03 Freq: Status: Active Protocol: Document 10/20/19 12:03 [facility] (Rec: 10/20/19 12:27 [facility] [id number]) Cognitive Factors Limiting Selfcare Function Cognitive Ability Level of Alertness Alert Patient Orientation Name,Age,Birthday,Month,Date, Year,Day of Week,Place, Situation Attention Span Ability Capable of Focused Attention, Capable of Sustained Attention Ability to Follow Commands Able to Follow Multi-Step Commands Memory Description No Deficits Noted Safety Awareness No Deficits Noted Problem Solving Ability No deficits Noted Executive Function Ability No Deficits Noted Cognitive Comments Cognitive Assessment Comments Pt scored 65 seconds on [place] Making Part B which implies perfect/normal score for visual attention, task switching, mental flexibility, speed of processing, and executive function. OT- Vision and Hearing OT- Hearing Assessment OT- Hearing Assessment WFL OT- Vision Assessment Visual Acuity WFL Vision Assessment Comments Pt able read the clock without difficulty. Pt states vision has cleared and not as blurry as prior. Pt notes disequilibrium when turning his head when donning his socks and during weight shifting when walking. M7 OT- IP Mobility and Balance Start: 10/20/19 12:03 Freq: Status: Active Protocol: Document 10/20/19 12:03 [facility] (Rec: 10/20/19 12:27 [facility] [id number]) OT- Bed Mobility Assessment Rolling Level of Assistance Independent Supine to Sit Supine to Sit Assist Independent Sit to Supine Sit to Supine Assist Independent OT-Transfer Assessment Sit to and From Stand Sit to and from Stand Standby Assistance Devices Transfer Assistive Devices Gait Belt,Front Wheeled Walker Comments Mobility Comments SBA to stand with FWW. SBA to walk around the bed with FWW and pt states geting more disequilibrium and needing to sit back down. Supine BP 140/ 91, Sitting BP 161/107, after washing up while seated 135/83 , and bcak in bed 138/98. OT- Balance Assessment Sitting Balance and Reactions Static Sitting Balance Ability Normal Dynamic Sitting Balance Ability Good Standing Balance and Reactions Static Standing Balance Ability Fair M8 OT- IP Objective Assessments Start: 10/20/19 12:03 Freq: Status: Active Protocol: Document 10/20/19 12:03 [facility] (Rec: 10/20/19 12:27 [facility] [id number]) OT Gross Range of Motion Upper Extremity Range of Motion Assessment Within Functional Limits OT Strength Comments Strength Comments RUE 4+/5, LUE 4/5 OT-Muscle Tone Assessment Muscle Tone WNL Yes OT Sensation Assessment Comments Summary Comments Intact for sensation for light Coordination: initial pt missed touching the tip of his nose eith right finger tip and on second trial was accurate. 9 hole peg test 26 seconds fro right hand and 25 seconds for left hand roughly scoring his around 50th percentile. Pt having slight difficulty initially picking up the pegs and after education and vc to slow down able to so do. No trouble with in hand manipulation of 5 items in hand. touch. M9 OT- IP Assessment and Plan Start: 10/20/19 12:03 Freq: Status: Active Protocol: Document 10/20/19 12:03 [facility] (Rec: 10/20/19 12:27 [facility] [id number]) OT Summary Assessment and Plan Potential Rehabilitation Potential Good Analytic Complexity at Evaluation Low Summary Pt low complexity and main barrier are disequilibrium during movements and now had to use a FWW to help walk around the bed. HeaD CT negative and awaiting results for MRI. Pt scored 65 seconds which implies normal cognition with no deficits. Pending medical results and re-assessment of functional mobility when up on his feet- to help determine equipment needs, pt would benefit form assist at home. Suggested to have his friend stay in the house with him to provide assist as needed. OT Impairments Balance,Functional Mobility, Dressing,Toileting,Bathing, Toilet Transfers,Shower Transfers Progress Towards Goals Slow Progress due to Medical Issues Goals Self-Feeding Goal Independent Grooming Goal Independent Dressing Goal Independent Toileting Goal Independent Bathing Goal Independent Toilet Transfer Goal Independent Shower Transfer Goal Independent Days to Meet Goals 5 Frequency of Treatment Frequency Of Treatment Once a Day Treatment Plan OT Treatment Plan ADL Training,Functional Mobility,Patient/Family Education,Discharge Planning Discharge Recommendations OT Discharge Recommendations Home with Assistance Transportation Needs at Discharge Private Vehicle
--- NOTE | 2019-10-20 11:43 | PC.NURSE ---
Addendum entered by Sherlyn Easley R.N. 10/20/19 14:51: Left ear lobe earring removed by RN Coordinator using ED tool. MRI scheduled for around 1600. Addendum entered by Sherlyn Easley R.N. 10/20/19 12:27: Left nipple ring and 2 string necklaces removed in preparation for MRI. Telemetry removed at this time as well. PIV S/L'd. Pt worked with PT, now sitting on edge of bed with bed alarm on, pt states feeling better than this morning. Aware to call for assist prior to ambulation. Original Note: Day Shift- Pt A&OX4, able to make his needs known using call light, bed alarm on. Pt more in supine position as with movement he states he gets dizzy. When pt turns his head from side to side he states he gets slightly nauseated. Plan for MRI and ECHO, pt aware. MRI around 1500 today. ECHO may not be until tomorrow. Pt remains on telemetry monitoring with Telemetry readings bu TRAFFIC OPERATOR as SB, 52 and 58. Pt states he does not recall having a heart rate in the 50's, he remembers his heart rate to be mid to high 60's. NIH score is 0, no issue with swallowing, chewing, pt able to recall events on last Saturday, leading up to ED admit. Denies any vision issues while lying down. Pt has worked with Speech, Ot and PT currently in pts room around 1130. Will continue to monitor.
--- NOTE | 2019-10-20 12:00 | PT.IIE ---
Surgical History (Last Reviewed 10/19/19 @ 23:25 by JAYDON Galvan) History of colonoscopy (Acute) History of tonsillectomy (Acute) Medical History (Last Reviewed 10/19/19 @ 23:24 by JAYDON Galvan) Hypertension (Acute) Physical Therapy Inpatient Evaluation/Re-Eval M1 PT/OT-IP Prior Functional Status Start: 10/20/19 12:03 Freq: NEEDED Status: Active Protocol: Document 10/20/19 12:03 [facility] (Rec: 10/20/19 12:27 [facility] [id number]) Medical Review Prior Functional Status Communication Independent. Mobility and Gait Independent with no devices for mobility. 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 Prior Functional Level (Other details) Pt [place] in two story house which is self sustainable with an outhouse and outdoor shower. Currently pt has a friend camping on his property for the month. Social History Household Members friend(s),none Living Arrangements House Number of Floors (Floors) Two Floors Number of Stairs To Enter/Railing? 4 steps with no rail to enter form the kitchen. 14 steps with no rails, landing and another 2 steps with no rails to his bed room level. Pt uses a jar at night for urination and usually has a bowel movemetn at work. Pt states just jumps into the pond on his property for showers. M2 PT-IP Current Condition Start: 10/20/19 09:46 Freq: NEEDED Status: Active Protocol: Document 10/20/19 11:21 [facility] (Rec: 10/20/19 13:30 [facility] [id number]) Physical Therapy Current Condition Current Condition Evaluation Date 10/20/19 Treatment Diagnosis Possible CVA Onset Date 10/17/19 M3 PT-IP Subjective Start: 10/20/19 09:46 Freq: NEEDED Status: Active Protocol: Document 10/20/19 11:21 [facility] (Rec: 10/20/19 13:30 [facility] [id number]) Subjective Physical Therapy Visit Type Type Initial Evaluation Visit Start Time 11:21 Visit Stop Time 12:00 Total Visit Minutes 39 Notes Pt is a 64 year old male who presented to the [facility] ED on 10/19/19 with complaints of three days of vertigo, nausea, and imbalance . Pt's history was hard to track, but it appears that he work up feeling nauseated and experiencing vertigo at some time on Saturday, and this lasted a few hours. He had to crawl unstradily to call for his friend, who is camping on his property, to get some help . Pt reports he just had to lay around for three days, and the vertigo stopped, but he then just felt very off balance and unsteady like I was on a boat. M4 PT-IP Mobility and Gait Start: 10/20/19 09:46 Freq: NEEDED Status: Active Protocol: Document 10/20/19 11:21 [facility] (Rec: 10/20/19 13:30 [facility] [id number]) PT-Bed Mobility Assessment Rolling Type of Rolling Roll to Right Level of Assist Independent Supine to Sit Supine to Sit Standby Assistance Sit to Supine Sit to Supine Standby Assistance M5 PT-IP Objective Assessments Start: 10/20/19 09:46 Freq: NEEDED Status: Active Protocol: Document 10/20/19 11:21 [facility] (Rec: 10/20/19 13:30 [facility] [id number]) Orientation Orientation/Cognition Level of Alertness Alert Orientation Name,Place,Situation Language Function Ability No Deficits Noted Safety Awareness Understands Safety Issues Memory Description No Deficits Noted Other Assessments Other Other Assessments Smooth Pursuit: WNL Saccades: WNL Side-lying test: negative right, sporadic nystagmus left , potentially geotropic or upbeating? Norman/Bend test: Negative Head Impulse test: Strongly positive right M6 PT-IP Treatment Start: 10/20/19 09:46 Freq: NEEDED Status: Active Protocol: Document 10/20/19 11:21 [facility] (Rec: 10/20/19 13:30 [facility] [id number]) Physical Therapy Treatment Other Treatments Other Treatment Performed Left Elsy Wagner7 PT-IP Assessment and Plan Start: 10/20/19 09:46 Freq: NEEDED Status: Active Protocol: Document 10/20/19 11:21 [facility] (Rec: 10/20/19 13:30 [facility] [id number]) PT Summary Assessment and Plan Potential Rehabilitation Potential Good Status of Condition at Evaluation Unstable Summary Impairments Balance,Coordination Assessment Summary Pt's history and strongly positive impulse test, with no associated complaints of hearing loss, is fairly suggestive of right-sided vestibular neuritis. Pt did display some unusual nystagmus in left sidelying test position, was very difficult to determine if it was upbeating or geotropic, performed a left-sided Elsy maneuver just in case there were some loose otoconia, but pt's symptoms overall were not strongly suggestive of BPPV. Pt has more testing planned for this afternoon, and if this testing is all negative, pt is most likely suffering from vestibular neuritis, and will strongly benefit from out -patient vestibular rehabilitation. Goals Gait Goal Independent Gait Distance 200' Other Goals 3 steps x2 /s railing Days to Meet Goals 2 Frequency of Treatment Frequency Of Treatment Twice a Day Treatment Plan Physical Therapy Treatment Plan Gait Training,Neuromuscular Re -ed,Coordination Retraining Other Recommendations and Next Treatment Gait training, balance Focus challenges with head turns as tolerated Recommendations To Nursing Amount of Assist Needed Standby Assistance Discharge Recommendations PT Discharge Recommendations Home,Home with Assistance, Outpatient PT Other Discharge Recommendations Vestibular rehabilitation Transportation Needs at Discharge Private Vehicle
[2019-10-20 12:23] VITALS: BP 141/98; PULSE 63; RESP 16; TEMP 36.2; O2SAT 97
--- NOTE | 2019-10-20 12:24 | CM.DANOTE ---
DCP/Assessment: Reviewed chart. Patient is a 64yr old male admitted to . with stroke like symptoms. PCP is Dr. Roger Ríos. Primary payor is 1)[facility]. Met with patient this AM explained CM/SW role. Patient alert and oriented during assessment. Patient reports that he resides alone in [place] on [facility]. Patient reports that he works and considers himself to be completely I in all ADL's. Patient reports that he has been having dizziness and double vision, both which are new for him. Patient currently being worked up for TIA/CVA. Patient plans to return home when stable. Patient reports that his friend's from [facility] are available to come get him. Contact for transport is Roger # [phone]. Patient is requesting priority boarding pass for return sailing to [place]. RN updated. P: Anticipate home when stable. Patient reports no physical deficits but still complains of dizziness. Work up in progress. If all tests negative anticipate d/c tomorrow 10-21-19. NARA Ray Discharge Planning/Care Management CM Discharge Assessment Start: 10/20/19 12:20 Freq: Status: Active Protocol: Document 10/20/19 12:20 [facility] (Rec: 10/20/19 12:24 [facility] [id number]) Discharge Planning Assessment Assigned Systems Admin NARA Ray Contact Information Audrey Blas (friend) Advance Directives? No History Provided By Patient,Medical Record Has Patient been admitted in last 30 No days? Prior Living Arrangements House Household Members none Type of transporation used prior to Drives own vehicle admit Independent with ADL's Yes Is patient alert and oriented? Yes Caregiver for Another No Comment Unsure at this time, patient has PT/OT/ST, MRI, and ECHO pending. Discharge Plan Home Transportation Arrangement Friends Whiteboard Updated in Patient Room with Yes name and ext. # of Systems Admin Review Status In Process Next Review Type Continued Stay Review
[2019-10-20 15:45] VITALS: BP 150/86; PULSE 58; RESP 17; TEMP 37; O2SAT 96
[2019-10-20 19:45] VITALS: BP 134/79; PULSE 56; RESP 16; TEMP 36.9; O2SAT 96
[2019-10-20] MEDS: ATORVASTATIN 20 MG TABLET PO (20:53)
[2019-10-20 23:00] VITALS: BP 141/64; PULSE 51; RESP 16; TEMP 36.2; O2SAT 98
[2019-10-21 01:06] LABS: Magnesium 2.2 mg/dL (1.6-2.3)
[2019-10-21 05:35] VITALS: BP 136/74; PULSE 50; RESP 16; TEMP 36.3; O2SAT 96
[2019-10-21 07:03] LABS: BUN Creatinine Ratio 23.1 (6-22); Blood Urea Nitrogen 18 mg/dL (9-20); Carbon Dioxide 29 mmol/L (22-32); Chloride 103 mmol/L (98-107); Estimated Glomerular Filt Rate > 60.0 mL/min (>60); Glucose 100 mg/dL (80-110); HEMOLYSIS < 15 (0-50); Potassium 4.1 mmol/L (3.4-5.1); Sodium 137 mmol/L (137-145)
[2019-10-21] MEDS: ASPIRIN EC 81 MG TABLET PO (08:47)
[2019-10-21] MEDS: ENOXAPARIN 40 MG/0.4 ML SYRINGE SUBCUT (08:48)
--- NOTE | 2019-10-21 10:12 | OT.IP.TRT ---
Occupational Therapy Treatment Note M2 OT-IP Current Condition Start: 10/20/19 12:03 Freq: Status: Active Protocol: Document 10/20/19 12:03 [facility] (Rec: 10/20/19 12:27 [facility] [id number]) Occupational Therapy Current Condition Current Condition Evaluation Date 10/20/19 Treatment Diagnosis possible CVA?, vertigo M3 OT- IP Subjective and Pain Start: 10/20/19 12:03 Freq: Status: Active Protocol: Document 10/21/19 12:43 [facility] (Rec: 10/21/19 12:58 [facility] [id number]) OT- Subjective Occupational Therapy Visit Type Type Treatment Note Visit Start Time 09:30 Visit Stop Time 10:12 Total Visit Minutes 42 Occupational Therapy Visit Comments Patient Comments Pt wanting to shower. Patient/Caregiver Goals To go home. OT Pain Assessment Pain When Pain Assessed At Rest Pain Present Pain Present Denied Pain M4 OT- IP ADL's Start: 10/20/19 12:03 Freq: Status: Active Protocol: Document 10/21/19 12:43 [facility] (Rec: 10/21/19 12:58 [facility] [id number]) OT EVS-Kjwk-Pzxgwge General Evaluation Self-Feeding Ability Independent OT ADL-Dressing General Eval Lower Body Dressing Ability Independent Comments OT Dressing Comments Pt independent to blade/doff socks while seated. OT ADL-Bathing Bathing Type Bathing Type Shower General Evaluation Bathing Ability Minimal Assistance Areas Needing Assistance Wash/Dry Back Comments OT Bathing Comments Pt having to sit from most of the shower, Pt just needing assist to wash his back at this time. Pt looking to get a membership to the senior center in order to do his showers. M5 OT- IP IADL's Start: 10/20/19 12:03 Freq: Status: Active Protocol: Document 10/20/19 12:03 [facility] (Rec: 10/20/19 12:27 [facility] [id number]) OT-Instrumental Activities of Daily Living Home Safety Awareness Awareness of Need for Assistance at Home Good Awareness Ability to Problem Solve Emergency Able to Problem Solve Situations Medication Management Medication Management No Deficits Identified Money Management Money Management No Deficits Identified Meal Preparation Meal Preparation Comments At this time due to vertigo, pt will benefit from assist for IADL needs. M6 OT- IP Functional Cognition Start: 10/20/19 12:03 Freq: Status: Active Protocol: Document 10/21/19 12:43 [facility] (Rec: 10/21/19 12:58 [facility] [id number]) Cognitive Factors Limiting Selfcare Function Cognitive Comments Cognitive Assessment Comments Pt intact and has no cognitive deficits. M7 OT- IP Mobility and Balance Start: 10/20/19 12:03 Freq: Status: Active Protocol: Document 10/21/19 12:43 [facility] (Rec: 10/21/19 12:58 [facility] [id number]) OT-Transfer Assessment Sit to and From Stand Sit to and from Stand Independent Devices Transfer Assistive Devices Gait Belt,Front Wheeled Walker ,4 Wheeled Walker Comments Mobility Comments Pt independent with 4WW and Fww, noted pt states feels safer with the FWW. Pt states has a friend that has already picked up a 4WW for him to use . In PM spoke with HOT TOP LINER and determined along with the pt would be best to have the FWW so it can be used and kept upstairs, instead of having to carry the walker up and down the stairs. OT- Gait Assessment Comments Gait Ability Comments Distant SBA with FWW/4WW OT- Balance Assessment Sitting Balance and Reactions Static Sitting Balance Ability Normal Dynamic Sitting Balance Ability Normal Standing Balance and Reactions Static Standing Balance Ability Good M8 OT- IP Objective Assessments Start: 10/20/19 12:03 Freq: Status: Active Protocol: M9 OT- IP Assessment and Plan Start: 10/20/19 12:03 Freq: Status: Active Protocol: Document 10/21/19 12:43 [facility] (Rec: 10/21/19 12:58 [facility] [id number]) OT Summary Assessment and Plan Potential Rehabilitation Potential Excellent Analytic Complexity at Evaluation Low Summary OT Impairments Balance,Functional Mobility, Bathing Progress Towards Goals Progressing Toward Goals Assessment Summary Pt low complexity and determined that pt had acute vestibular neuritis and now having to use a FWW and/or 4WW for mobility needs. Without use of the walker , pt needing CGA and having to hold onto surfaces to assist with his balance. Recommended home with assist and to do outpt vestibular therapy. Pt's friend to stay with him in his house and assist him as needed. Goals Bathing Goal Independent Days to Meet Goals 1 Frequency of Treatment Frequency Of Treatment Once a Day Discharge Recommendations OT Discharge Recommendations Home with Assistance Transportation Needs at Discharge Private Vehicle
[2019-10-21 10:26] VITALS: BP 138/80; PULSE 54; RESP 18; TEMP 37.1; O2SAT 97
--- NOTE | 2019-10-21 11:04 | PT.IPTN ---
Physical Therapy Treatment Note M2 PT-IP Current Condition Start: 10/20/19 09:46 Freq: NEEDED Status: Active Protocol: Document 10/20/19 11:21 DCW (Rec: 10/20/19 13:30 DCW [id number]) Physical Therapy Current Condition Current Condition Evaluation Date 10/20/19 Treatment Diagnosis Possible CVA Onset Date 10/17/19 M3 PT-IP Subjective Start: 10/20/19 09:46 Freq: NEEDED Status: Active Protocol: Document 10/21/19 10:39 SP (Rec: 10/21/19 13:27 SP [email or web address]) Subjective Physical Therapy Visit Type Type Treatment Note Visit Start Time 10:39 Visit Stop Time 11:04 Total Visit Minutes 25 Number of [employer]ER Visits 1 Physical Therapy Visit Comments Patient Comments Pt willing to work with therapy. Reported feels like on a TM when up and walking around, did go into hallway by myself earlier today. Therapy Pain Assessment Pain Present Pain Present Denied Pain M4 PT-IP Mobility and Gait Start: 10/20/19 09:46 Freq: NEEDED Status: Active Protocol: Document 10/21/19 10:39 SP (Rec: 10/21/19 13:27 SP [email or web address]) PT-Transfer Assessment Sit to and From Stand Sit to and from Stand Standby Assistance,Use of Upper Extremities Equipment Transfer Assistive Device Gait Belt,4 Wheeled Walker Orthotic/Prosthetic Devices or Brace: No Transfers Transfer Destination Chair Transfer Technique pt ambulated using FWW Transfer Ability Level of Assist Standby Assistance Comments Mobility Comments Pt was upright in chair when arrived. Pt stated I was up walking around earlier by myself in hallway using the FWW and felt like on a TM and things going by me but felt stable, alot better than yesterday. [employer] educated importance of someone being around for safety with dizzy feeling and stationary awareness pre mobility for safety with verbal confirmation. Pt stated did get access to 4WW for home use but would be willing to take home a FWW for placement on 2nd level so doesnt' have to ask for help, OT received verbal order from physician and [employer] dispensed today during tx. [employer] educated patient on proper safety use of brake mgt and positioning of 4WW prior to mobility with good carryover throughout tx. Sit<> stand from chair using BUE on chair arms for little self support SBA. Pt completed brief stationary stand, stable light contact 4WW SBA. Pt ambulated using 4WW chair in room to stairs and back approx 540 ft SBA, w/c follow but not needed, good step over step slow pacing, stable with good brake mgt demonstration when discussed scenarios. Assessed 6 step mgt without rails LOB x1 on 2nd step Min A to recover, provided SPC for LUE support and used RUE press against R HR to assimulate wall on R side for self support going into house and wall on L usign SPC in RUE when goes to 2nd level decreased to CGA 1set stairs and SBA 2nd set with good slow pacing and stability. Pt stated has access to SPC to assist on stairs at home as well. Pt good SPT using 4WW and brake mgt once returned to room and using BUE slow safe descent to sit in chair. [employer] discussed SBA using 4WW when up and moving around with verbal confirmation, using call light for alert for assist. Pt had call light and all needs in reach before left . Gait Assessment Gait Gait Assistance Required: Standby Assistance Distance (Feet) 540 Able to Maintain Weight Bearing Status Yes During Gait Assistive Devices Assistive Device Gait Belt,4 Wheeled Walker Orthotic/Prosthetic Devices or Brace: No Gait Deviations General Gait Pattern Antalgic Factors Limiting Gait Function Factors Limiting Gait Function Decreased Activity Tolerance, Decreased Strength,Poor Balance Comments Gait Comments Distant gait SBA with FWW/4WW. Stair Climbing Assessment Evaluation Level of Assist On Stairs Standby Assistance,Contact Guard Assistance,Minimal Assistance Devices Stair Climbing Assistive Devices Straight Cane Technique/Endurance Stair Climbing Direction Ascend and Descend Stair Climbing Technique Step to Step Number of Steps Climbed 3 Stair Climbing Set # Repetitions (reps) 2 Comments Stair Climbing Comments See mobility comments, unable ascend stairs with no UE support, SPC and press on wall with other UE for self mobility assimulate home CGA decreased to SBA. PT-Balance Assessment Sitting Balance and Reactions Static Sitting Balance Ability Normal Dynamic Sitting Balance Ability Normal Standing Balance and Reactions Static Standing Balance Ability Good Dynamic Standing Balance Ability Good Device Used 4WW M5 PT-IP Objective Assessments Start: 10/20/19 09:46 Freq: NEEDED Status: Active Protocol: Document 10/20/19 11:21 DCW (Rec: 10/20/19 13:30 DCW [id number]) Orientation Orientation/Cognition Level of Alertness Alert Orientation Name,Place,Situation Language Function Ability No Deficits Noted Safety Awareness Understands Safety Issues Memory Description No Deficits Noted Other Assessments Other Other Assessments Smooth Pursuit: WNL Saccades: WNL Side-lying test: negative right, sporadic nystagmus left , potentially geotropic or upbeating? [place]/Bend test: Negative Head Impulse test: Strongly positive right M6 PT-IP Treatment Start: 10/20/19 09:46 Freq: NEEDED Status: Active Protocol: Document 10/20/19 11:21 DCW (Rec: 10/20/19 13:30 DCW [id number]) Physical Therapy Treatment Other Treatments Other Treatment Performed Left Elsy M7 PT-IP Assessment and Plan Start: 10/20/19 09:46 Freq: NEEDED Status: Active Protocol: Document 10/21/19 10:39 SP (Rec: 10/21/19 13:27 SP [email or web address]) PT Summary Assessment and Plan Potential Rehabilitation Potential Good Status of Condition at Evaluation Evolving Summary Impairments Balance,Coordination,Transfers ,Gait,Activity Tolerance Assessment Summary PT previous tx reported is most likely suffering from vestibular neuritis, and will strongly benefit from out- patient vestibular rehabilitation. Today pt able to mobility using FWW/4WW during transfers, gait SBA, CGA- SBA during stairs SPC and pressure on wall assimuate home, see mobility details. Pt has access to 4WW for gait and SPC for stair assist at home aagreeable to FWW dispense to keep on 2nd level and not needing assist for transporting. Pt has good safety awareness and improving in stability with use of 4WW/ FWW, safe to discharge home with friend to assist him when medically cleared. Continuing to recommend oupt vestibular PT after discharge, patient stated will contact physician to place order but was told there is one to see on [facility]. Goals Gait Goal Independent Gait Distance 200' Other Goals 3 steps x2 /s railing Days to Meet Goals 2 Frequency of Treatment Frequency Of Treatment Twice a Day Treatment Plan Physical Therapy Treatment Plan Gait Training,Neuromuscular Re -ed,Coordination Retraining Other Recommendations and Next Treatment Gait training, balance Focus challenges with head turns as tolerated Recommendations To Nursing Amount of Assist Needed Independent,Standby Assistance Discharge Recommendations PT Discharge Recommendations Home with Assistance, Outpatient PT Other Discharge Recommendations Vestibular rehabilitation Transportation Needs at Discharge Private Vehicle
--- NOTE | 2019-10-21 11:10 | P.DS_ITS ---
History of Present Illness History of Present Illness Date Patient Seen: 10/19/19 Chief complaint: possible stroke Narrative: Written by Jimenez INTERIANO: Mr. Booker Jacobs is a 64-year-old male with history of hypertension and hep C who presents to the ER with dizziness and double vision. Patient states his symptoms began Saturday night 3 days ago when he woke with diaphoresis, nausea and impaired vision. The patient reports he has been unable set up witho ut the room severely spending the cannot recall which way he states that he could not walk and adds that he was in fear of falling to either side. He describes significant diplopia which is since improved though he reports still visual blurring. His nausea has improved initially keep nothing down Saturday on Saturday he could begin eating little bit and reports eating a burrito today without gastric upset. He still reports now he feels disequilibrium like on a moving boat with his symptoms exacerbating with movement or trying to set up. Reports no recent illness, fevers or chills or COVID-19 exposures. Denies complaints of headaches or changes in hearing or problem swallowing. He does at that about a week ago he had his right ear checked by his PCP and was told that he had ear wax impacted. He denies complaints of chest pain or palpitations and has no shortness of breath cough or wheezing. He has no abdominal pain or bloating and with movement his disease continues to make him feel nauseous. Reports no changes in bowel or bladder habits. Upon arrival the patient has a temperature 98.3?, heart rate of 61, blood pressure 151/87, respirations of 18 saturating 100% on room air. CT of the head is obtained which finds no bleed, lesions or other acute intracranial pathology. On laboratory analysis he has white count 9.3, hemoglobin of 15.5, hematocrit 44.9 and platelets of 328. He has a sodium 138 and a potassium 3.3. His BUN is 24 his creatinine is 0.85. His nonfasting glucose of 107. A total CK is 61 and troponin is negative at 0.012. Twelve lead EKG is obtained which shows a sinus rhythm with ventricular rate of 66 and a intraventricular conduction delay with a QRS duration of 112 milliseconds, no ectopy, ST or T-wave changes. In the ER the patient received 5 mg of diazepam, meclizine 25 mg Zofran 4 mg and 1 L of normal saline. The patient is admitted to medicine service for severe vertigo. Discharge Providers Provider Date of admission: 10/19/19 19:55 Discharge Date: 10/21/19 Primary care physician: Roger Roach MD Consults: 10/19/19 20:33 Consult to Discharge Planning Routine Comment: Consult to Occupational Therapy Evaluate & Treat Comment: Physician Instructions: Evaluate and treat Consult to Physical Therapy Evaluate & Treat Comment: Physician Instructions: Evaluate and Treat Consult to Speech Therapy Evaluate & Treat Comment: Physician Instructions: Evaluate and treat 10/20/19 07:24 Consult to Occupational Therapy Evaluate & Treat Comment: Prob cerebellar CVA Physician Instructions: Evaluate and treat Consult to Respiratory Therapy Evaluate & Treat Comment: Prob cerebellar CVA Physician Instructions: Evaluate and treat Discharge provider: Amber Chaudhary DO Summary Hospital Course Discharge Diagnosis: 1. Acute vestibular neuritis, present on admission. Resolving. 2. Hypertension, chronic, present on admission. Stable. 3. Hypokalemia, acute, present on admission. Resolved. 4. Nicotine dependence, chronic, present on admission. Stable. Hospital Course: Booker Jacobs is a 64-year-old male with a past medical history significant for hypertension, hep C, and nicotine dependence who presented to the ED for persistent dizziness, disequilibrium and double vision. 1. Acute vestibular neuritis, present on admission. Resolving. -Patient presented with severe dizziness and disequilibrium with associated diaphoresis, visual distortion, nausea and vomiting. Patient's dizziness and disequilibrium have improved overall but persisted. No prior history of similar problems. The patient has disequilibrium increased with movement, bilateral nystagmus, no headache or neck pain. -CT head without contrast did not demonstrate any acute intracranial abnormalities. MR stroke protocol unremarkable did not demonstrate stenosis, occlusion, or aneurysm. CVA ruled out. -Risk stratified with hemoglobin A1c which was normal at 5.3% and fasting lipid panel which demonstrated mild hyperlipidemia with LDL 108 (goal < 100) and recommend lifestyle modification including diet and exercise. Discontinued aspirin and statin for stroke prevention as not indicated. -Continued physical, occupational and speech therapy evaluation and treatment. Recommend outpatient referral to physical therapy for vestibular training. -Discussed case with on-call ENT, Dr. Sinha, who recommended outpatient referral to ENT for right-sided cerumen extraction and evaluation and treatment of vestibular neuritis. 2. Hypertension, chronic, present on admission. Stable. -Held chlorthalidone due to dehydration from nausea and vomiting, as well as, to allow for permissive hypertension in the case of CVA which has been ruled out. -Continued to monitor blood pressure closely and treat if necessary. 3. Hypokalemia, acute, present on admission. Resolved. -Likely related to GI losses with nausea and vomiting. -Initial potassium level 3.3. Received potassium chloride 40 mEq IV x1. Potassium level now 4.1. Magnesium level normal at 2.2. -Continued to monitor potassium level closely and replete as necesary. 4. Nicotine dependence, chronic, present on admission. Stable. -Patient reports that he smokes tobacco hooka intermittently. -Counseled the patient and recommended indefinite smoking cessation. Exam Vital Signs (past 8 hours): - 10/21/19 05:35 10/21/19 10:26 Temperature 97.3 F L 98.8 F Pulse Rate 50 L 54 L Respiratory Rate 16 18 Blood Pressure 136/74 138/80 Pulse Oximetry 96 97 Oxygen Delivery Method Room Air Oxygen Flow Rate 0 Narrative Exam Narrative: General: Older gentleman lying in bed and in no acute distress, well-developed, well-nourished, appropriately interactive. HEENT: Normocephalic, atraumatic. External ears without defect. Pupils equal, ro und, and reactive to light. Anicteric sclerae, moist conjunctivae, and no lid lag. Oropharynx free of erythema and cobble stoning with moist mucosa. Horizontal nystagmus left > right and now subtle and resolving. Right auditory canal with significant cerumen not impacted. Neck: Supple with full range of motion. No jugular venous distension. No lymphadenopathy or thyromegaly. Cardiovascular: Regular rate and rhythm without murmurs, rubs, or gallops appreciated. Pulmonary: Clear to auscultation bilaterally without crackles, wheezes, or rhonchi. Normal respiratory effort with no use of accessory muscles. Abdomen: Soft, obese, bowel sounds present, nontender, nondistended. No hepatosplenomegaly or masses appreciated. Extremities: No clubbing, cyanosis, or edema. Skin: Normal temperature, turgor, and texture; no rash, ulcers, or subcutaneous nodules appreciated. Neurological: Cranial nerves grossly intact. Horizontal nystagmus left > right and now subtle and resolving. No focal neurological deficits. Disequilibrium and ataxia. Psychiatric: Normal mood and affect. Alert and oriented to person, place, and time. Objective Labs Result Diagrams: 10/20/19 05:35 10/21/19 06:15 Labs: Laboratory Results - last 24 hr 10/20/19 10/21/19 05:35 06:15 Sodium 137 Potassium 4.1 Chloride 103 Carbon Dioxide 29 BUN 18 Creatinine 0.78 Estimated GFR > 60.0 BUN/Creatinine Ratio 23.1 H Glucose 100 Calcium 9.0 Magnesium 2.2 Discharge Plan Discharge Plan Patient Disposition: Home Discharge comment: You are being discharged home. You have vestibular neuritis which is inflammation of your vestibular nerve likely due to a viral infection. Treatment for vestibular neuritis is vestibular training with physical therapy. If your symptoms persist or worsen could consider steroids. Please follow-up [facility]NT to assess your right ear wax buildup and evaluate your vestibular neuritis. Recommend hospital follow-up with your primary care provider, Dr. Roach, and referral for physical therapy. Discharge orders & Medications Prescriptions: Continued chlorthalidone 25 mg tablet 25 mg PO DAILY RF: 0 Follow up/Referrals: Louis Sinha MD [Physician] - 10/28/19 3:45 pm (appt:10/27 @ check in @ 3:45 for a 4:[address] sinha located @ [facility] [place] [address] b (building right below [facility])) Roger Roach MD [Primary Care Provider] - 3-5 Days (dr roach office to call patient with appointment date & time ) Diet/Activity/Treatments Diet: Low-fat, Low-sodium and Low-cholesterol Activity: Activity as tolerated with walker and physical therapy for vestibular training Visit Report/Discharge Packet Visit Report Forms: Patient Portal/API, Stroke Signs & Symptoms Discharge Data Primary Care Provider: Roger Roach Attending Provider: Jimenez Guajardo Admit Date/Time: 10/19/19 19:55 Quality VTE Deep Vein Thrombosis/Pulmonary Embolism Present on Admission: No
--- NOTE | 2019-10-21 11:48 | PC.NURSE ---
Patient denies dizziness or nausea. Walking around better, worked with OT and had a shower. Ambulated in the halls with PT and will be using a walker/cane. He has been discharged from the hospital and is hoping to catch the [address] ferry to [facility]. He will follow up with the ENT to have some wax removed from his ears. Patient will have a priority ferry pass.
--- NOTE | 2019-10-21 13:52 | CM.DPNOTE ---
DC Note DC home today; met w/patient and he explained his friend that is camping on his property has agreed to stay with him in his house to assist. Patient has been cleared by therapies and Dr Chaudhary for return home today. No needs identified from this PRIVACY ANALYST. NORBERTO
[2019-10-21 14:00] VITALS: BP 140/75; PULSE 55; RESP 16; TEMP 36.6; O2SAT 96
--- NOTE | 2019-10-21 16:54 | PC.NURSE ---
EVENING SHIFT Care assumed 1530, discharge orders already written. IV dc'd. Friend at bedside will be offering assistance at home; she raised concerns about mobility to outhouse, ongoing symptoms. Discussed at length with both patient and friend. Discussed use of bedside commode and possible ways of obtaining one; patient very resistant to this plan. He and friend were able to reach an alternative agreement of their own accord. Script obtained from Dr. Chaudhary for ondansedron ODT for ongoing nausea. Discharge instructions given. Pt. understands diagnosis and follow-up care, including ENT, PT, PCP. Discharged home at 1645. Has all personal belongings, including newly issued wheelchair and urinal. Wheeled out to friend's private vehicle.
== END 2019-10-21 16:45 | disposition home or self-care (01) ==
LOC: ED 19:49 → AC 19:55
PROVIDERS: Internal Medicine; Admitting Provider Nurse Practitioner Adult Health; Emergency Provider Emergency Medicine; PCP Family Medicine; Referring Provider Family Medicine; Visit Provider Nurse Practitioner Adult Health
DX: G58.8 Other specified mononeuropathies (principal); R42 Dizziness and giddiness; H53.2 Diplopia; R11.2 Nausea with vomiting, unspecified; F17.210 Nicotine dependence, cigarettes, uncomplicated; I10 Essential (primary) hypertension; E87.6 Hypokalemia; Z11.59 Encounter for screening for other viral diseases
CPT/HCPCS: 36415; 70450; 70548; 70553; 80048; 80053; 80061; 81003; 82550; 82962; 83036; 83735; 84443; 84484; 85025; 85610; 85730; 87635; 92523; 93005; 93010; 95992; 96361; 96365; 96366; 96375; 97116; 97162; 97165; 97530; 97535; 99285; 99406; G0378; A9579; J1650; J2405; J3360; J3480